=== PATIENT | female | born 1950 | race Caucasian/White ===

== ENCOUNTER 2024-03-06 17:06 | Inpatient (IN) | payer MEDICARE, OTHER ==
[~2024-03-06] VITALS: Ht 162.6 cm; Wt 86.4 kg
[2024-03-06] MEDS ORDERED: iohexol 350MG/ML 100ml bottle IV ONE (17:59)
[2024-03-06 18:08] LABS: BASOPHILS % (AUTO) 0.6 % (0-1); EOSINOPHILS # (AUTO) 0.3 X10'3 (0-0.9); EOSINOPHILS % (AUTO) 4.9 % (0-6); HEMOGLOBIN 14.4 g/dl (12.0-16.0); LYMPHOCYTES # (AUTO) 1.4 X10'3 (1.1-4.8); LYMPHOCYTES % (AUTO) 21.4 % (21-51); MEAN CORPUSCULAR HEMOGLOBIN 30.6 PG (27.0-31.0); MEAN CORPUSCULAR HGB CONC 33.6 g/dL (33.0-36.5); MEAN CORPUSCULAR VOLUME 91.3 FL (78-98); MEAN PLATELET VOLUME 9.9 FL (7.4-10.4); MONOCYTES # (AUTO) 0.4 X10'3 (0-0.9); MONOCYTES % (AUTO) 6.9 % (2-12); NEUTROPHILS # (AUTO) 4.2 X10'3 (1.8-7.7); NEUTROPHILS % (AUTO) 66.2 % (42-75); PLATELET COUNT 169 X10'3 (140-440); RED BLOOD COUNT 4.71 X10'6 (4.20-5.60); RED CELL DISTRIBUTION WIDTH 15.1 % (11.5-14.5); WHITE BLOOD COUNT 6.4 X10'3 (4.5-11.0)
[2024-03-06] MEDS: diphenhydrAMINE 50 mg/ml inj IV ONE (18:27)
[2024-03-06] MEDS: methylPREDNISolone sod succ 125mg/2ml vial IV ONE (18:27)
[2024-03-06 18:32] LABS: ALANINE AMINOTRANSFERASE 29 U/L (12-78); ALBUMIN 3.7 G/DL (3.4-5.0); ALBUMIN/GLOBULIN RATIO 1.2 (1.1-1.5); ALKALINE PHOSPHATASE 63 IU/L (46-116); ANION GAP 5 (8-16); ASPARTATE AMINO TRANSFERASE 17 U/L (10-37); BLOOD UREA NITROGEN 17 MG/DL (7-18); BUN/CREATININE RATIO 20.5 (10.0-20.0); CALCIUM 9.6 MG/DL (8.5-10.1); CHLORIDE 107 MMOL/L (99-107); CREATININE 0.83 MG/DL (0.40-0.90); GLUCOSE 109 MG/DL (70-104); POTASSIUM 3.9 MMOL/L (3.5-5.1); SODIUM 140 MMOL/L (135-145); TOTAL CARBON DIOXIDE 27.7 MMOL/L (24-32); TOTAL PROTEIN 6.9 G/DL (6.4-8.2); eCRCL 51 ML/MIN; eGFR 67 ML/MIN
[2024-03-06 18:36] LABS: PRO BRAIN NATRIURETIC PEPTIDE 267 PG/ML (0-450)
[2024-03-06] MEDS: ondansetron/PF 4mg/2ml inj IV ONE (20:25)
[2024-03-06] MEDS: fentaNYL/PF 50MCG/1 ML 2ML syringe IV ONE (20:26)
[2024-03-06] MEDS: aspirin 325mg tablet PO ONE (20:26)
[2024-03-06] MEDS ORDERED: ASPI-611 PO (22:39)
[2024-03-06] MEDS ORDERED: LOSA-415 PO (22:39)
[2024-03-06] MEDS ORDERED: LOSA100T58 PO (22:39)
[2024-03-06] MEDS ORDERED: LOP25T PO (22:39)
[2024-03-06] MEDS ORDERED: HYDR25TA5 PO (22:39)
[2024-03-06] MEDS ORDERED: ROSU20TA73 PO (22:41)
[2024-03-06] MEDS ORDERED: metoprolol tartrate 1mg/ml inj IV PRN (23:45)
[2024-03-06] MEDS ORDERED: nitroGLYCERIN 0.4mg SUBLingual tab SL PRN (23:45)
[2024-03-06] MEDS ORDERED: PERFLUTREN PROTEIN-A MICROSPHR (Optison) 0.22 MG/ML 3ML VIAL IV PRN (23:45)
[2024-03-06] MEDS ORDERED: aminophylline 250mg/10ml inj. IV PRN (23:45)
[2024-03-07] VITALS (13 sets, daily range): BP systolic 116–156; BP diastolic 52–68; PULSE 55–101; RESP 14–19; TEMP 97–98.3; O2SAT 94–100
[2024-03-07] MEDS ORDERED: nitroGLYCERIN 0.4mg SUBLingual tab SL PRN
[2024-03-07 00:06] LABS: HEMOGLOBIN A1C 5.5 % (4.5-6.2)
[2024-03-07] MEDS: aspirin 325mg tablet PO ONE (02:49)
[2024-03-07 07:44] LABS: BASOPHILS # (AUTO) 0.1 X10'3 (0-0.2); BASOPHILS % (AUTO) 0.5 % (0-1); EOSINOPHILS % (AUTO) 0.1 % (0-6); HEMOGLOBIN 14.6 g/dl (12.0-16.0); LYMPHOCYTES # (AUTO) 0.7 X10'3 (1.1-4.8); LYMPHOCYTES % (AUTO) 7.1 % (21-51); MEAN CORPUSCULAR HEMOGLOBIN 30.2 PG (27.0-31.0); MEAN CORPUSCULAR HGB CONC 32.4 g/dL (33.0-36.5); MEAN CORPUSCULAR VOLUME 93.3 FL (78-98); MEAN PLATELET VOLUME 10.6 FL (7.4-10.4); MONOCYTES # (AUTO) 0.2 X10'3 (0-0.9); MONOCYTES % (AUTO) 1.5 % (2-12); NEUTROPHILS # (AUTO) 9.1 X10'3 (1.8-7.7); NEUTROPHILS % (AUTO) 90.8 % (42-75); PLATELET COUNT 141 X10'3 (140-440); RED BLOOD COUNT 4.83 X10'6 (4.20-5.60); RED CELL DISTRIBUTION WIDTH 15.3 % (11.5-14.5)
[2024-03-07] MEDS: metoprolol tartrate 12.5mg (1/2 tablet) PO SCH (08:00)
[2024-03-07] MEDS: aspirin 81mg, enteric-coated 1 TAB TABLET.DR PO SCH (08:00)
[2024-03-07] MEDS: losartan 50mg tablet PO SCH (08:00)
[2024-03-07 08:15] LABS: ALBUMIN 3.4 G/DL (3.4-5.0); ANION GAP 13 (8-16); BLOOD UREA NITROGEN 20 MG/DL (7-18); BUN/CREATININE RATIO 26.7 (10.0-20.0); CALCIUM 9.4 MG/DL (8.5-10.1); CHLORIDE 107 MMOL/L (99-107); CHOL/HDL RATIO 2.1 (0.00-4.99); CHOLESTEROL 182 MG/DL (0-200); CREATININE 0.75 MG/DL (0.40-0.90); GLUCOSE 140 MG/DL (70-104); HDL CHOLESTEROL 88 MG/DL (35-60); LDL CHOLESTEROL 80 MG/DL (50-100); POTASSIUM 4.4 MMOL/L (3.5-5.1); SODIUM 139 MMOL/L (135-145); TOTAL CARBON DIOXIDE 19.1 MMOL/L (24-32); TRIGLYCERIDES 47 MG/DL (20-135); eCRCL 56 ML/MIN; eGFR 75 ML/MIN
[2024-03-07] MEDS: HYDROchlorothiazide 25mg tablet PO SCH (08:21)
[2024-03-07] MEDS: regadenoson 0.4mg/5ml syringe IV PRN (11:46)
[2024-03-07] MEDS: enoxaparin 40mg/0.4ml syringe SQ SCH (20:06)
[2024-03-07] MEDS: ROSUVASTATIN CALCIUM 5 MG TABLET PO SCH (20:10)
[2024-03-08 02:00] VITALS: BP 120/54; PULSE 57; RESP 15; TEMP 97; O2SAT 97
[2024-03-08 06:00] VITALS: BP 108/54; PULSE 53; RESP 14; TEMP 96.8; O2SAT 99
[2024-03-08 07:59] LABS: BASOPHILS % (AUTO) 0.4 % (0-1); EOSINOPHILS # (AUTO) 0.4 X10'3 (0-0.9); EOSINOPHILS % (AUTO) 5.5 % (0-6); HEMATOCRIT 40.3 % (35.0-45.0); HEMOGLOBIN 13.6 g/dl (12.0-16.0); LYMPHOCYTES # (AUTO) 1.6 X10'3 (1.1-4.8); MEAN CORPUSCULAR HEMOGLOBIN 30.7 PG (27.0-31.0); MEAN CORPUSCULAR HGB CONC 33.8 g/dL (33.0-36.5); MEAN CORPUSCULAR VOLUME 91.1 FL (78-98); MEAN PLATELET VOLUME 10.6 FL (7.4-10.4); MONOCYTES # (AUTO) 0.5 X10'3 (0-0.9); MONOCYTES % (AUTO) 7.1 % (2-12); NEUTROPHILS # (AUTO) 5.1 X10'3 (1.8-7.7); PLATELET COUNT 154 X10'3 (140-440); RED BLOOD COUNT 4.43 X10'6 (4.20-5.60); RED CELL DISTRIBUTION WIDTH 14.8 % (11.5-14.5); WHITE BLOOD COUNT 7.7 X10'3 (4.5-11.0)
[2024-03-08 08:00] VITALS: RESP 14; O2SAT 99
[2024-03-08 08:21] LABS: ALBUMIN 3.1 G/DL (3.4-5.0); ANION GAP 7 (8-16); BLOOD UREA NITROGEN 20 MG/DL (7-18); BUN/CREATININE RATIO 26.3 (10.0-20.0); CALCIUM 9.3 MG/DL (8.5-10.1); CHLORIDE 105 MMOL/L (99-107); CREATININE 0.76 MG/DL (0.40-0.90); GLUCOSE 85 MG/DL (70-104); POTASSIUM 3.9 MMOL/L (3.5-5.1); SODIUM 138 MMOL/L (135-145); TOTAL CARBON DIOXIDE 25.9 MMOL/L (24-32); eCRCL 55 ML/MIN; eGFR 74 ML/MIN
[2024-03-08 11:00] VITALS: BP 127/51; PULSE 54; RESP 19; TEMP 98.1; O2SAT 96
[2024-03-08 11:59] VITALS: BP_SYST 127; PULSE 54
[2024-03-08] MEDS ORDERED: PANT40TA54 PO (15:07)
== END 2024-03-08 13:13 | disposition home or self-care (01) | DRG 392 ==
LOC: ER 17:06 → ED HOLD 23:42 → PCU 3S 03-07 00:44
PROVIDERS: ADMIT Internal Medicine Critical Care Medicine; ATTEND Internal Medicine
PROC: B32T1ZZ Computerized Tomography (CT Scan) of Left Pulmonary Artery using Low Osmolar Contrast (ICD-10-PCS; principal; 2024-03-06)
PROC: B3201ZZ Computerized Tomography (CT Scan) of Thoracic Aorta using Low Osmolar Contrast (ICD-10-PCS; 2024-03-06)
PROC: B32S1ZZ Computerized Tomography (CT Scan) of Right Pulmonary Artery using Low Osmolar Contrast (ICD-10-PCS; 2024-03-06)
PROC: 4A02XM4 Measurement of Cardiac Total Activity, External Approach (ICD-10-PCS; 2024-03-07)
PROC: 3E033HZ Introduction of Radioactive Substance into Peripheral Vein, Percutaneous Approach (ICD-10-PCS; 2024-03-07)
DX: K21.9 Gastro-esophageal reflux disease without esophagitis (principal); I25.118 Atherosclerotic heart disease of native coronary artery with other forms of angina pectoris; I10 Essential (primary) hypertension; E78.5 Hyperlipidemia, unspecified; K44.9 Diaphragmatic hernia without obstruction or gangrene; Z96.653 Presence of artificial knee joint, bilateral; Z79.899 Other long term (current) drug therapy; Z79.82 Long term (current) use of aspirin; Z88.8 Allergy status to other drugs, medicaments and biological substances; Z88.5 Allergy status to narcotic agent; Z85.3 Personal history of malignant neoplasm of breast
CPT/HCPCS: 36415; 71045; 71275; 74176; 78452; 80048; 80053; 80061; 83036; 83880; 84484; 85025; 87081; 93005; 93017; 93306; 96374; 96375; 99285; A6449; A9500; G0378; J1200; J1650; J2405; J2785; J2919; J3010; Q9967